=== PATIENT | female | born 1960 | race Caucasian/White ===

== ENCOUNTER 2023-08-09 16:40 | Emergency (ER) | payer BC, OTHER ==
--- OUTSIDE RECORDS SUMMARY | 2023-08-09 16:45 | XMS REPORT | Continuity of Care Document ---
:1960 Author Organization [facility] t Address [address] [place] [address] [place] [id number] Care Team Providers Name Role Phone JEY DE LA ROSA Attending Clinician Unavailable Kev Hernandez Attending Clinician Provider, [facility] Attending Clinician Unavailable Claribel Mclean Attending Clinician CLARIBEL FERRO Attending Clinician Unavailable Doctor Unassigned, [place] Attending Clinician Unavailable Elisa Virk Attending Clinician VISIT, ZOOKEEPER MPMonico Attending Clinician Unavailable Elisa Virk Admitting Clinician Payers Payer Name Policy Type Policy Number Effective Date Expiration Date [facility] [id number] 2020 00:00:00 Problems Condition Condition Condition Status Onset Resolution Last Treating Co mments Source Name Details Category Date Date Treatment Clinician Date [address]6041, 35065, Diagnosis Active 2018-09-19 Me moria SCREENING SCREENING 08-21 06:38:00 l FOR FOR 00:00: [place] DISORDERS DISORDERS 00 OF THE DI OF THE DI Active 08/21/2018 [facility] [id number] Diagnosis Active 2018-11-14 Mem oria MORBID MORBID 11-25 09:40:00 l OBESITY OBESITY 00:00: [place] Active 00 11/25/2017 [facility] Unspecifie Unspecifi Problem 2019-04-08 Memoria d chronic ed chronic 11:13:53 l gastritis gastritis Herm manuel without without bleeding bleeding 04/08/2019 [facility] Other Other Problem 2019-04-08 Memor ia diseases diseases 11:13:53 l of stomach of stomach He rmann and and duodenum duodenum 04/08/2019 [facility] Obesity, Obesity, Problem 2019-04-08 Memoria unspecifie unspecifie 11:13:53 l d d Mike 04/08/2019 [facility] Body mass Body mass Problem 2019-04-08 Memoria index index 11:13:53 l (BMI) (BMI) [place] 40.0-44.9, 40.0-44.9, adult adult 04/08/2019 [facility] Essential Essential Problem 2019-06-03 Memoria (primary) (primary) 15:13:13 l hypertensi hypertensi He rmann on on 06/03/2019 [facility] Lymphedema Lymphedem Problem 2019-06-03 Memoria , not a, not 15:13:13 l elsewhere elsewhere Herm manuel classified classified 9 [facility] Body mass Body mass Problem 2019-06-03 Memoria index index 15:13:13 l (BMI) (BMI) Mike 60.0-69.9, 60.0-69.9, adult adult 06/03/2019 [facility] Unspecifie Problem 2019-06-03 M emoria d Unspecifie 15:13:13 l osteoarthr d Samuel n itis, osteoarthr unspecifie itis, d site unspecifie d site 06/03/2019 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 History of History Problem Active 2020-11-25 Memoria bypass of of bypass 22:20:59 l stomach of stomach Barbara nn (situation (situation ) ) Active Problem 11/25/2020 [facility] Morbid Morbid Problem Active 2020-11-25 Magen darlyn obesity obesity 22:20:59 l (disorder) (disorder) Eduardo otero Active Problem 11/25/2020 [facility] ILLNESS, ILLNESS, Diagnosis Active 2018-11-14 Memoria UNSPECIFIE UNSPECIFIE 09:40:00 l D D Active Mike [facility] No known No known Disease Unive rs active active ity of problems problems [facility] History of Past Illness Condition Condition Condition Status Onset Resolution Last Treating Co mments Source Name Details Category Date Date Treatment Clinician Date Morbid Morbid Problem 2017-112019-06-03 2019-06-03 Memoria (severe) (severe) 15:13:13 15:13:13 l obesity obesity 05:12: Mike due to due to 33 excess excess calories calories 11/22/2018 06/03/2019 [facility] Gastric Gastric Problem 2017-112019-04-08 2019-04-08 Memoria ulcer, ulcer, 11-25 11:13:53 11:13:53 l unspecifie unspecifie 04:03: He rmann d as acute d as acute 58 or or chronic, chronic, without without hemorrhage hemorrhage or or perforatio perforatio n n 09/25/2018 04/08/2019 [facility] Allergies, Adverse Reactions, Alerts Allergy Allergy Status Severity Reaction(s) Onset Inactive Treating Comm ents Source Name Type Date Date Clinician NO KNOWN Drug Active Univers ALLERGIE Class [facility]y of [facility] Percodan Percodan Active Maria Alejandraori a l Mike Social History Social Habit Start Date Stop Date Quantity Comments Source Sex Assigned At Universit y of [facility] Exposure to Yes [facility] SARS-CoV-2 [facility] (event) [facility] Tobacco use and 2020-11-10 2020-11-10 Never used Universit y of exposure 00:00:00 00:00:00 [facility] Alcohol intake 2020-11-10 2020-11-10 Lifetime University of 00:00:00 00:00:00 non-drinker [facility] (finding) Branch History SDUT 2020-11-10 2020-11-10 1 University o f Alcohol Frequency 00:00:00 00:00:00 [facility] History [facility] 2020-11-10 2020-11-10 99 University o f Alcohol Std 00:00:00 00:00:00 [facility] History SDUT 2020-11-10 2020-11-10 1 University o f Alcohol Binge 00:00:00 00:00:00 [facility] Smoking Status Start Date Stop Date Source Unknown if ever smoked [facility] Social History [facility] Mike Medications Ordered Filled Start Stop Current Ordering Indication Dosage Frequency Signature Comments Components Source Medication Medication Date Date Medication? Clinician (SIG) Name Name Multiple 2020- Yes 3 Memoria Vitamins 6-30 Capsules, l with Iron 16:14: Daily, 0 Herm manuel oral tablet 00 Refill(s) omeprazole Yes 1 tablet, Me moria 20 mg oral 6-30 Daily, 0 l enteric 16:14: Refill(s) Barbara nn coated 00 tablet Acetaminoph 2017-11 No 1 tab, PO, Memoria en 300 MG / 2-21 Q4H, PRN l Codeine 22:14: Pain Score Herm manuel Phosphate 00 1-3, X 3 30 MG Oral day, # 20 Tablet tab, 0 [Tylenol Refill(s), with called to Codeine #3] pharmacy Acetaminoph 2017-11 No 2 tab, Magen darlyn en 300 MG / 2-21 Route: PO, l Codeine 21:40: Drug Form: Herm manuel Phosphate 00 TAB, 30 MG Oral Dosing Tablet Weight [Tylenol 163.636, with kg, Q4H, Codeine #3] PRN Pain Score 4-6, Start date: 11/14/18 15:40:00 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, Duration: 30 day, Stop date: 12/14/18 15:39:00 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 tramadol 2017-11 No 50 mg = 1 Magen darlyn hydrochlori 2-21 tab, PO, l de 50 MG 17:38: Q4H, PRN Barbara nn Oral Tablet 00 Pain Score 1-3, X 3 day, # 20 tab, 0 Refill(s), called to pharmacy Protonix 2017-11 No Notes: For Mem oria 2-21 IV push l 15:00: reconstitu Mike 00 te with 10 ml 0.9% sodium chloride and push over 2 minutes. (Same as: Protonix) Lovenox 2017-11 No Notes: Memoria 2-21 (Same as: l 06:00: Lovenox) Mike 00 Zofran ODT 2017-11 No Notes: Memor ia 2-21 (Same as: l 02:16: Zofran Mike 00 ODT) Ketorolac 2017-11 No 4 days Memor ia 2-21 l 02:00: MEDICATION [place] 00 WASTE Product Size: 30 mg Product Wasted: ___ mg Ofirmev 2017-11 No Notes: Max Magen darlyn 2-20 acetaminop l 22:00: hen 4000 Mike 00 mg/day (4 gm/day). (Same as: Tylenol Extra Strength) Dilaudid 2017-11 No 0.5 mg, Memori a 2-20 Route: IV, l 18:40: ONCE, Mike 00 Dosing Weight 163.636, kg, Start date: 11/13/18 12:40:00 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, Stop date: 11/13/18 12:40:00 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 tramadol 2017-11 No Notes: Not Mem oria hydrochlori 2-20 to exceed l de 50 MG 18:31: 400mg/day. Her dyer Oral Tablet 00 (Same As: Ultram) Morphine 2017-11 No Notes: Memoria 2-20 (Same l 18:31: as:MORPhin Mike 00 e Sulfate) Hydralazine 2017-11 No Notes: Magen darlyn 2-20 (Same as: l 18:31: Apresoline ) Push over 5 minutes Labetalol 2017-11 No Notes: Memori a 2-20 (Same as: l 18:31: Normodyne, Mike 00 Trandate) Push over 2 minutes Give bolus over 2-3 minutes. Promethazin 2017-11 No 12.5 mg, Me moria e 2-20 50 mL, l 18:31: Route: 00 IVPB, Drug form: SOLN, Q6H, Dosing Weight 163.636, kg, PRN Nausea & Vomiting, Start date: 11/13/18 12:31:00 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, Duration: 30 day, Stop date: 12/13/18 12:30:00 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 Ondansetron 2017-11 No Notes: Magen darlyn 2-20 (Same as: l 18:31: Zofran) MEDICATION WASTE Product Size: 4 mg Product Wasted: ___ mg Calcium 2017-11 No 1,000 mL, Memor ia Chloride 2-20 Rate: 125 l 0.0014 18:31: ml/hr, [place] MEQ/ML / 00 Infuse Potassium over: 8 Chloride hr, Route: 0.004 IV, Dosing MEQ/ML / Weight Sodium 163.636 Chloride kg, Total 0.103 Volume: MEQ/ML / 1,000, Sodium Start Lactate date: 0.028 11/13/18 MEQ/ML 12:31:00 Injectable 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, Solution Duration: 30 day, Stop date: 12/13/18 12:30:00 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, 2.78, m2 glycopyrrol 2017-11 No Route: IV, Memoria ate (ANES) 2-20 Drug form: l 18:11: INJ, ONCE, Stop date: 11/13/18 12:11:00 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 metoclopram 2017-11 No Route: IV, Memoria hermilo (ANES) 2-20 Drug form: l 18:11: INJ, ONCE, Stop date: 11/13/18 12:11:00 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 neostigmine 2017-11 No Route: IV, Memoria (ANES) 2-20 Drug form: l 18:11: INJ, ONCE, Stop date: 11/13/18 12:11:00 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 lidocaine 2017-11 No Route: IV, Me moria (ANES) 2-20 Drug form: l 16:36: INJ, ONCE, Stop date: 11/13/18 10:36:00 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 fentaNYL 2017-11 No Route: IV, Mem oria (ANES) 2-20 Drug form: l 16:36: INJ, ONCE, Stop date: 11/13/18 10:36:00 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 succinylcho 2017-11 No Route: IV, Memoria line (ANES) 2-20 Drug form: l 16:36: INJ, ONCE, Stop date: 11/13/18 10:36:00 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 propofol 2017-11 No Route: IV, Mem oria (ANES) 2-20 Drug form: l 16:36: INJ, ONCE, Stop date: 11/13/18 10:36:00 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 rocuronium 2017-11 No Route: IV, M emoria (ANES) 2-20 Drug form: l 16:31: INJ, ONCE, Stop date: 11/13/18 10:31:00 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 ondansetron 2017-11 No Route: IV, Memoria (ANES) 2-20 Drug form: l 16:26: INJ, ONCE, Stop date: 11/13/18 10:26:00 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 ePHEDrine 2017-11 No Route: IV, Me moria (ANES) 2-20 Drug form: l 16:26: INJ, ONCE, Stop date: 11/13/18 10:26:00 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 ceFAZolin 2017-11 No Route: IV, Me moria (ANES) 2-20 Drug form: l 16:21: INJ, ONCE, Stop date: 11/13/18 10:21:00 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 Dexamethaso 2017-11 No Notes: Magen darlyn ne 2-20 Concentrat l 16:17: ion: [place] 4mg/ml Ondansetron 2017-11 No Notes: Magen darlyn 2-20 (Same as: l 16:17: Zofran) MEDICATION WASTE Product Size: 4 mg Product Wasted: ___ mg Promethazin 2017-11 No Notes: Do M emoria e 2-20 not give l 16:17: IV push. (Same as: Phenergan) Naloxone 2017-11 No Notes: Memoria 2-20 Same as l 16:17: Narcan Diphenhydra 2017-11 No Notes: Magen darlyn mine 2-20 (Same as: l 16:17: Benadryl) Meperidine 2017-11 No Notes: Memor ia 2-20 (Same as: l 16:17: Demerol) "Use Precaution in Elderly, Seizure disorders, and Renal impairment " Morphine 2017-11 No Notes: Memoria 2-20 (Same l 16:17: as:MORPhin e Sulfate) Flumazenil 2017-11 No Notes: Memor ia 2-20 (Same as: l 16:17: Romazicon) dexamethaso 2017-11 No Route: IV, Memoria ne (ANES) 2-20 Drug form: l 16:16: INJ, ONCE, Mike 00 Stop date: 11/13/18 10:16:00 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 acetaminoph 2017-11 No Route: IV, Memoria en (ANES) 2-20 Drug form: l 10 mg 15:57: INJ, Start Samuel n date: 11/13/18 9:57:00 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, Stop date: 11/13/18 10:57:00 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 Lactated 2017-11 No Route: IV, Mem oria Ringers 2-20 Total l Injection 15:32: Volume: Barbara nn IV (ANES) 00 1,000, 1000 mL Start date: 11/13/18 9:32:00 [employer]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, Stop date: 11/13/18 10:32:00 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 ceFAZolin + 2017-11 No Notes: Magen darlyn sterile 2-20 (Same As: l water 30 mL 06:00: Helen Garza Kefzol) MEDICATION WASTE Product Size: 1000 mg Product Wasted: ___ mg Sodium 2017-11 No 1,000 mL, Memori a Chloride 2-19 Rate: l 0.9% IV 14:00: bolus, [place] 1,000 mL 00 Route: IV, Dosing Weight 172.273 kg, Total Volume: 1,000, Start date: 11/12/18 8:00:00 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, Stop date: 11/13/18 14:00:00 [employer]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, 2.86, m2 Tylenol 2017-11 No PO, 0 Memoria 2-05 Refill(s) l 22:18: Mike 00 Centrum 2017-11 No 1 tab, Memoria 0-26 Daily, 0 l 12:43: Refill(s) Mike 00 Glucosamine 2017-11 No 1,500 mg Me moria Chondroitin 0-26 =, PO, l 12:43: Daily, 0 [place] 00 Refill(s) Furosemide 2017-11 No 20 mg, Memor ia 0-26 Daily, 0 l 12:43: Refill(s) [place] 00 Bystolic 2017-11 No 10 mg, PO, Mem oria 0-26 Daily, 0 l 12:43: Refill(s) [place] 00 Aleve 2017-11 No 220 mg, Memoria 0-26 PO, 0 l 12:43: Refill(s) Unknown 2017-11 No PO, Daily, Magen darlyn Home 0-26 Refill(s) l Medication 12:43: 0 Vital Signs Vital Name Observation Time Observation Value Comments Source Systolic blood 2020-11-10 21:07:00 135 mm[Hg] Univer sity of pressure [facility] Diastolic blood 2020-11-10 21:07:00 82 mm[Hg] [facility] Heart rate 2020-11-10 21:07:00 84 /min [facility] Body temperature 2020-11-10 21:07:00 37.78 Susie [facility] Respiratory rate 2020-11-10 21:07:00 18 /min [facility] Body height 2020-11-10 21:07:00 162.6 cm [facility] Body weight 2020-11-10 21:07:00 135.807 kg [facility] BMI 2020-11-10 21:07:00 51.39 kg/m2 [facility] Oxygen saturation in 2020-11-10 21:07:00 98 /min [facility] Arterial blood by [facility] Pulse oximetry Branch Height 2020-05-24 16:32:00 157.48 cm [facility] [place] Weight 2020-05-24 16:32:00 [facility] Mike BMI Calculated 2020-05-24 16:32:00 Memori al Mike Systolic (mm Hg) 2019-11-23 19:19:00 Magen rial [place] Diastolic (mm Hg) 2019-11-23 19:19:00 Mem orial [place] Height 2019-11-23 19:19:00 160.02 cm [facility] [place] Weight 2019-11-23 19:19:00 [facility] [place] BMI Calculated 2019-11-23 19:19:00 Memori al [place] Systolic (mm Hg) 2018-11-14 22:36:00 Magen rial [place] Diastolic (mm Hg) 2018-11-14 22:36:00 Mem orial [place] Temperature Oral (F) 2018-11-14 22:36:00 97.8 F [facility] Mike Respitory Rate 2018-11-14 22:36:00 Memori al [place] Heart Rate 2018-11-14 22:36:00 [facility] Mike Systolic (mm Hg) 2018-11-14 18:45:00 Magen rial Mike Diastolic (mm Hg) 2018-11-14 18:45:00 Mem orial [place] Temperature Oral (F) 2018-11-14 18:45:00 98.0 F [facility] Mike Respitory Rate 2018-11-14 18:45:00 Memori al Mike Heart Rate 2018-11-14 18:45:00 [facility] [place] Heart Rate 2018-11-14 13:40:00 [facility] Mike Temperature Oral (F) 2018-11-14 13:40:00 99.0 F [facility] [place] Respitory Rate 2018-11-14 13:40:00 Memori al [place] Systolic (mm Hg) 2018-11-14 13:40:00 Magen vivas [place] Diastolic (mm Hg) 2018-11-14 13:40:00 Mem orial [place] BMI Calculated 2018-11-13 14:42:00 Memkiarra al Mike Weight 2018-11-13 14:42:00 [facility] [place] Height 2018-10-29 22:13:00 162.56 cm [facility] [place] Weight 2018-09-19 12:38:00 [facility] [place] Height 2018-09-19 12:38:00 160.02 cm [facility] [place] BMI Calculated 2018-09-19 12:38:00 Balbina al Mike Procedures Procedure Date / Time Performing Clinician Source Performed POCT FLU A AND B 2020-11-10 21:26:00 Nishant Andujar [facility] Laparoscopic lysis of 2018-11-13 06:00:00 Balbina olguin [place] adhesions Shannon-en-y gastric 2018-11-13 06:00:00 [facility] ermann bypass Encounters Start End Encounter Admission Attending Care Care Encounter Source Date/Time Date/Time Type Type Clinicians Facility Department ID 2021-02-07 2021-02-07 Outpatient Alison DE LA ROSA [facility] [id number] Univers 16:20:00 16:20:00 [facility] 2021-01-17 2021-01-17 Outpatient Alison DE LA ROSA [facility] [id number] Univers 14:50:00 14:50:00 [facility] 2020-11-23 2020-11-23 Ambulatory nullFlavo [id number] Memoria 15:30:00 15:30:00 Pre-Reg r Physicians 05 l Bariatric Samuel n Surgery 2020-11-23 2020-11-23 [place] [id number] Memoria 15:00:00 15:00:00 Pre-Reg r Physicians 06 l Bariatric Samuel n Surgery 2020-11-23 2020-11-23 Outpatient MHIE CRYSTALIE [id number] Memoria 09:30:00 09:30:00 05 l [place] 2020-11-23 2020-11-23 Outpatient FRANCE ROJASIE [id number] Memoria 09:30:00 09:30:00 06 l Mike 2020-11-23 2020-11-23 Outpatient DOMINIC Hernandez [facility] [id number] 09:30:00 09:30:00 Kev 05 2020-11-23 2020-11-23 Outpatient David [facility] [id number] 09:00:00 09:00:00 Kev 06 2020-11-10 2020-11-10 Urgent Provider, [facility] [id number] Univers 14:58:37 15:18:37 Care Claribel Ferro [facility] [id number] ity of [place] [id number] John as Professio [phone] [place] [address] [address] 2020-11-10 2020-11-10 Outpatient R PILLO [facility] [id number] Univers 15:00:00 15:00:00 CLARIBEL webber [facility] 2020-11-10 2020-11-10 Letter Doctor GENTRY [id number] [facility] 00:00:00 00:00:00 (Out) Unassigned, NEERAJ [id number] [facility] [id number] John as [id number] [address] 2020-05-24 2020-05-25 [place] [id number] Memoria 16:00:00 04:59:59 r Physicians 04 l Bariatric Samuel n Surgery 2020-05-24 2020-05-24 Outpatient Sully [facility] [id number] 11:00:00 23:59:59 Elisa Palmaiam 2020-05-24 2020-05-24 [place] [id number] Memoria 18:00:00 18:00:00 Pre-Reg r Physicians 01 l Bariatric Samuel n Surgery 2020-05-24 2020-05-24 [place] [id number] Memoria 18:00:00 18:00:00 Pre-Reg r Physicians 03 l Bariatric Samuel n Surgery 2020-05-24 2020-05-24 Outpatient MHIE MHIE [id number] Memoria 13:00:00 13:00:00 01 nataliya Mckeon 2020-05-24 2020-05-24 Outpatient MHIE MHIE [id number] Memoria 13:00:00 13:00:00 03 l [place] 2020-05-24 2020-05-24 Outpatient Gloriase, MG [facility] [id number] 13:00:00 13:00:00 Tanyaradzwa Elena 2020-05-24 2020-05-24 Outpatient Sully, [facility] [id number] 13:00:00 13:00:00 Tanyaradzwa 03 Elena 2020-05-24 2020-05-24 Outpatient MHIE IE [id number] Memoria 11:00:00 11:00:00 04 l [place] 2019-11-27 2019-11-27 Ambulatory nullFlavo [id number] Memoria 20:30:00 20:30:00 Pre-Reg r Physicians 02 l Bariatric Samuel n Surgery 2019-11-27 2019-11-27 Outpatient MHIE CRYSTALIE [id number] Memoria 14:30:00 14:30:00 02 l Mike 2019-11-27 2019-11-27 Outpatient VISIT, [facility] [id number] 14:30:00 14:30:00 ZOOKEEPER 02 MPB 2019-11-23 2019-11-24 Outpatient nullFlavo [id number] Memoria 19:00:00 05:59:59 r Physicians 00 l Bariatric Samuel n Surgery 2019-11-23 2019-11-23 Outpatient Sully, [facility] [id number] 13:00:00 23:59:59 Tanyaradzwa Elena 2019-11-23 2019-11-23 Outpatient MHIE IE [id number] Memoria 13:00:00 13:00:00 00 l [place] 2018-11-13 2018-11-15 Inpatient nullFlavo [facility] [id number] Memoria 13:55:00 00:50:00 r Mike 01 [facility] 2018-11-13 2018-11-14 Outpatient Sully, [facility] [id number] 07:55:00 18:50:00 Tanyaradstaciewa Elena 2018-09-19 2018-09-19 Bedded nullFlavo [facility] [id number] Memoria 11:26:00 13:50:00 Outpatient r Mike 00 [facility] 2018-09-19 2018-09-19 Outpatient Sully [facility] [id number] 06:26:00 08:50:00 Tuanarnaud 00 Elena Results Test Description Test Time Test Comments Results Result Comments Source POCT FLU A AND B (MOLECULAR) 2020-11-10 21:38:00 Test Item Value Reference Range Interpretation Comme nts POCT INFLUENZA A (test code = negative Negative - Negative 3840) POCT INFLUENZA B (test code = negative Negative - Negative 3841) EWA (test code = EWA) accurate development and interpretation of all internal controls Lab Interpretation (test code = Normal 40274-1) [facility]2018[facility] 10:02:00 Test Item Value Reference Range Interpretation Comments Sodium Lvl (test code = Sodium Lvl) 142 135-145 [facility]2018-12-21 10:02:00 Test Item Value Reference Range Interpretation Comments Potassium Lvl (test code = Potassium 4.6 3.5-5.1 Lvl) [facility]2018-12-21 10:02:00 Test Item Value Reference Range Interpretation Comments Chloride Lvl (test code = Chloride Lvl) 105 95-109 [facility]2018-12-21 10:02:00 Test Item Value Reference Range Interpretation Comments Glucose Lvl (test code = Glucose Lvl) 83 70-99 [facility]2018-12-21 10:02:00 Test Item Value Reference Range Interpretation Comments CO2 (test code = CO2) 28 24-32 [facility]2018-12-21 10:02:00 Test Item Value Reference Range Interpretation Comments BUN (test code = BUN) 10 7-22 [facility]2018-12-21 10:02:00 Test Item Value Reference Range Interpretation Comments eGFR (test code = eGFR) 99 [facility]2018-12-21 10:02:00 Test Item Value Reference Range Interpretation Comments Creatinine Lvl (test code = Creatinine 0.64 0.50-1.40 Lvl) [facility]2018-12-21 10:02:00 Test Item Value Reference Range Interpretation Comments AGAP (test code = AGAP) 13.6 10.0-20.0 [id number] 10:02:00 Test Item Value Reference Range Interpretation Comments Lymphocytes # (test code = Lymphocytes 0.7 1.0-5.5 #) [id number] 10:02:00 Test Item Value Reference Range Interpretation Comments Monocytes # (test code 0.6 See_Comment [Aut omated message] The = Monocytes #) system which generated this result tra nsmitted reference range : <=0.8. The reference r elsy was not used to int erpret this result as normal/abnormal . [id number] 10:02:00 Test Item Value Reference Range Interpretation Comments Lymphocytes (test code = Lymphocytes) 9.9 20.0-40.0 [id number] 10:02:00 Test Item Value Reference Range Interpretation Comments Monocytes (test code = Monocytes) 8.3 2.0-12.0 [id number] 10:02:00 Test Item Value Reference Range Interpretation Comments Basophils (test code = 0.2 See_Comment [Aut omated message] The Basophils) system which ge nerated this result tra nsmitted reference range : <=1.0. The reference r elsy was not used to int erpret this result as normal/abnormal . [id number] 10:02:00 Test Item Value Reference Range Interpretation Comments Eosinophils (test code = 0.1 See_Comment [A utomated message] The Eosinophils) system which ge nerated this result tra nsmitted reference range : <=4.0. The reference r elsy was not used to int erpret this result as normal/abnormal . [id number] 10:02:00 Test Item Value Reference Range Interpretation Comments Neutrophils # (test code = Neutrophils 5.8 1.5-8.1 #) [id number] 10:02:00 Test Item Value Reference Range Interpretation Comments Segs (test code = Segs) 81.5 45.0-75.0 [id number] 10:02:00 Test Item Value Reference Range Interpretation Comments Hct (test code = Hct) 35.4 36.0-48.0 [facility]woodWdnlwgnSXBRTQANMQ0438-83-70 10:02:00 Test Item Value Reference Range Interpretation Comments MCH (test code = MCH) 29.4 pg 27.0-31.0 [facility]TowtdhcUKQHYHWZGT0798-82-18 10:02:00 Test Item Value Reference Range Interpretation Comments MCHC (test code = MCHC) 32.7 32.0-36.0 [facility]UV[facility] 10:02:00 Test Item Value Reference Range Interpretation Comments Hgb (test code = Hgb) 11.6 12.0-16.0 [facility] HospitalVewgnkrTLCZFOFOIP1096-37-04 10:02:00 Test Item Value Reference Range Interpretation Comments MCV (test code = MCV) 89.9 80.0-98.0 [facility] HospitalZxlkzlpLZCOJZXRWV8595-49-68 10:02:00 Test Item Value Reference Range Interpretation Comments RBC (test code = RBC) 3.94 4.20-5.40 [facility] HospitalTwynpkoSWZFXVTPYS7140-68-37 10:02:00 Test Item Value Reference Range Interpretation Comments MPV (test code = MPV) 8.8 7.4-10.4 [facility] HospitalUtzvmrfUUNDWDSYFY0119-06-77 10:02:00 Test Item Value Reference Range Interpretation Comments Platelet (test code = Platelet) 170 133-450 [facility] HospitalIhhtzuiWVKLWARDID9090-45-72 10:02:00 Test Item Value Reference Range Interpretation Comments RDW (test code = RDW) 13.4 11.5-14.5 [facility]ptYEHAQCZRSA7459-02-56 10:02:00 Test Item Value Reference Range Interpretation Comments WBC (test code = WBC) 7.1 3.7-10.4 [facility] HospitalAdsWizz [id number] 10:02:00 Test Item Value Reference Range Interpretation Comments Calcium Lvl (test code = Calcium Lvl) 8.8 8.5-10.5 [facility] [id number] 15:05:00 Test Item Value Reference Range Interpretation Comments Antibody Scrn (test Negative (11/13/18 code = Antibody Scrn) 9:05 AM) [facility] VRVANFS4217-26-07 15:05:00 Test Item Value Reference Range Interpretation Comments ABO/Rh (test code = ABO/Rh) A POS [facility] [employer] [id number] 22:38:00 Test Item Value Reference Range Interpretation Comments VITAMIN B1 (THIAMINE) WHOLE BLOOD (test 157.9 66.5-200.0 code = VITAMIN B1 (THIAMINE) WHOLE BLOOD) [facility]2018-12-05 22:38:00 Test Item Value Reference Range Interpretation Comments B/C Ratio (test code = B/C Ratio) 19 1 6-25 [place] 224348-12-05 22:38:00 Test Item Value Reference Range Interpretation Comments A/G Ratio (test code = A/G Ratio) 0.8 1 0.7-1.6 [place] 224348-12-05 22:38:00 Test Item Value Reference Range Interpretation Comments Globulin (test code = Globulin) 4.4 2.7-4.2 [facility]2018-12-05 22:38:00 Test Item Value Reference Range Interpretation Comments AGAP (test code = AGAP) 12.1 10.0-20.0 [facility]2018-12-05 22:38:00 Test Item Value Reference Range Interpretation Comments AST (test code = AST) 18 See_Comment [Auto mated message] The system which ge nerated this result transmit annalee reference range : <=37. The reference range was not used to interpr et this result as eduardo l/abnormal. [facility]2018-12-05 22:38:00 Test Item Value Reference Range Interpretation Comments eGFR (test code = eGFR) 78 [facility]2018-12-05 22:38:00 Test Item Value Reference Range Interpretation Comments Creatinine Lvl (test code = Creatinine 0.83 0.50-1.40 Lvl) [facility]2018-12-05 22:38:00 Test Item Value Reference Range Interpretation Comments ALT (test code = ALT) 30 See_Comment [Auto mated message] The system which ge nerated this result transmit annalee reference range : <=65. The reference range was not used to interpr et this result as eduardo l/abnormal. [facility]2018-12-05 22:38:00 Test Item Value Reference Range Interpretation Comments Bili Total (test code = Bili Total) 0.8 0.2-1.3 [place] 224348-12-05 22:38:00 Test Item Value Reference Range Interpretation Comments Sodium Lvl (test code = Sodium Lvl) 146 135-145 [place] 224348-12-05 22:38:00 Test Item Value Reference Range Interpretation Comments Chloride Lvl (test code = Chloride Lvl) 108 95-109 [facility]2018-12-05 22:38:00 Test Item Value Reference Range Interpretation Comments Potassium Lvl (test code = Potassium 4.1 3.5-5.1 Lvl) [facility]2018-12-05 22:38:00 Test Item Value Reference Range Interpretation Comments Total Protein (test code = Total 7.9 6.4-8.4 Protein) [facility]2018-12-05 22:38:00 Test Item Value Reference Range Interpretation Comments Albumin Lvl (test code = Albumin Lvl) 3.5 3.5-5.0 [facility]2018-12-05 22:38:00 Test Item Value Reference Range Interpretation Comments CO2 (test code = CO2) 30 24-32 [facility]2018-12-05 22:38:00 Test Item Value Reference Range Interpretation Comments BUN (test code = BUN) 16 7-22 [facility]2018-12-05 22:38:00 Test Item Value Reference Range Interpretation Comments Alk Phos (test code = Alk Phos) 49 39-136 [facility]2018-12-05 22:38:00 Test Item Value Reference Range Interpretation Comments Glucose Lvl (test code = Glucose Lvl) 103 70-99 [facility]2018-12-05 22:38:00 Test Item Value Reference Range Interpretation Comments Calcium Lvl (test code = Calcium Lvl) 9.0 8.5-10.5 [facility]woodOpnalsrWFKYQCZUFA5872-46-85 22:38:00 Test Item Value Reference Range Interpretation Comments PT (test code = PT) 12.4 s 12.0-14.7 [place] 243848-12-05 22:38:00 Test Item Value Reference Range Interpretation Comments PTT (test code = PTT) 28.1 s 22.9-35.8 [place] 243848-12-05 22:38:00 Test Item Value Reference Range Interpretation Comments INR (test code = INR) 0.94 1 0.85-1.17 [place] 243848-12-05 22:38:00 Test Item Value Reference Range Interpretation Comments Hct (test code = Hct) 40.1 36.0-48.0 [facility]woodBidwkleZEVJBPQXAS6418-45-16 22:38:00 Test Item Value Reference Range Interpretation Comments MCV (test code = MCV) 89.7 80.0-98.0 [facility]woodQblybsbWGSPGTYAET0004-16-63 22:38:00 Test Item Value Reference Range Interpretation Comments Hgb (test code = Hgb) 13.2 12.0-16.0 [facility] KingwoodMyciumyMYLIDWHYIM9350-11-60 22:38:00 Test Item Value Reference Range Interpretation Comments RBC (test code = RBC) 4.47 4.20-5.40 [facility] KingwoodIelcaydZYJMIIPSTR3800-94-11 22:38:00 Test Item Value Reference Range Interpretation Comments WBC (test code = WBC) 7.0 3.7-10.4 [facility]woodKqwclrwPQUEMIXTEC6893-52-75 22:38:00 Test Item Value Reference Range Interpretation Comments RDW (test code = RDW) 13.7 11.5-14.5 [facility]woodOfbdoqtNBFSCOPAWL1675-02-28 22:38:00 Test Item Value Reference Range Interpretation Comments Platelet (test code = Platelet) 183 133-450 [facility] KingwoodXsrxhklSKDYBNDKTR1021-85-87 22:38:00 Test Item Value Reference Range Interpretation Comments MPV (test code = MPV) 8.8 7.4-10.4 [facility]woodJsqmgycRMEFXKTYWH8957-33-43 22:38:00 Test Item Value Reference Range Interpretation Comments MCHC (test code = MCHC) 32.9 32.0-36.0 [facility] KingwoodZrtfyybOSYPRIQIVT5829-91-81 22:38:00 Test Item Value Reference Range Interpretation Comments MCH (test code = MCH) 29.5 pg 27.0-31.0 [facility] KingwoodCgqqcsgTFBVCCCTNC3476-71-52 22:38:00 Test Item Value Reference Range Interpretation Comments Basophils (test code = 0.9 See_Comment [Aut omated message] The Basophils) system which ge nerated this result tra nsmitted reference range : <=1.0. The reference r elsy was not used to int erpret this result as normal/abnormal . [facility]woodSjjhxeoLCEGSYVGNY0640-46-52 22:38:00 Test Item Value Reference Range Interpretation Comments Neutrophils # (test code = Neutrophils 4.5 1.5-8.1 #) [facility] KingwoodIekteziBRHGMTLJFM9217-37-49 22:38:00 Test Item Value Reference Range Interpretation Comments Segs (test code = Segs) 65.1 45.0-75.0 [facility] KingwoodAhmmsqoWCCJMAJVPX9467-69-27 22:38:00 Test Item Value Reference Range Interpretation Comments Eosinophils # (test code 0.2 See_Comment [A utomated message] The = Eosinophils #) system [facility] h generated this result tra nsmitted reference range : <=0.5. The reference r elsy was not used to int erpret this result as normal/abnormal . [facility]woodXnlnisvDNKZCJLCXC2912-92-58 22:38:00 Test Item Value Reference Range Interpretation Comments Basophils # (test code 0.1 See_Comment [Aut omated message] The = Basophils #) system which generated this result tra nsmitted reference range : <=0.2. The reference r elsy was not used to int erpret this result as normal/abnormal . [facility]woodNiwvfycDVQJJZKCCE3905-67-65 22:38:00 Test Item Value Reference Range Interpretation Comments Lymphocytes # (test code = Lymphocytes 1.5 1.0-5.5 #) [facility]woodKjmvjhcQITQIEBDIR6755-17-56 22:38:00 Test Item Value Reference Range Interpretation Comments Monocytes # (test code 0.6 See_Comment [Aut omated message] The = Monocytes #) system which generated this result tra nsmitted reference range : <=0.8. The reference r elsy was not used to int erpret this result as normal/abnormal . [facility]woodGbhzomuKISFNQSDCT6864-63-23 22:38:00 Test Item Value Reference Range Interpretation Comments Eosinophils (test code = 3.4 See_Comment [A utomated message] The Eosinophils) system which ge nerated this result tra nsmitted reference range : <=4.0. The reference r elsy was not used to int erpret this result as normal/abnormal . [facility]woodTsjqwdmVIHEWVYACW6226-46-11 22:38:00 Test Item Value Reference Range Interpretation Comments Lymphocytes (test code = Lymphocytes) 21.9 20.0-40.0 [facility] KingwoodAjkgsxuDUBBIOOABV9398-61-95 22:38:00 Test Item Value Reference Range Interpretation Comments Monocytes (test code = Monocytes) 8.7 2.0-12.0 [facility]2018-12-05 22:10:00 Test Item Value Reference Range Interpretation Comments UA Leuk Est (test Negative (10/29/18 4:10 code = UA Leuk Est) PM) [facility] [id number] 22:10:00 Test Item Value Reference Range Interpretation Comments UA WBC (test code = 1 See_Comment [Automa annalee message] The UA WBC) system which ge nerated this result transmit annalee reference range : <=5. The reference range was not used to interpr et this result as eduardo l/abnormal. [facility] AND [id number] 22:10:00 Test Item Value Reference Range Interpretation Comments UA Sq Epi (test code = UA Sq Occasional /LPF Epi) [facility] [id number] 22:10:00 Test Item Value Reference Range Interpretation Comments UA RBC (test code = no gt See_Comment [Automa annalee message] The UA RBC) system which ge nerated this result transmit annalee reference range : <=2. The reference range was not used to interpr et this result as eduardo l/abnormal. [facility] [id number] 22:10:00 Test Item Value Reference Range Interpretation Comments UA Bacteria (test code = UA Occasional /HPF Bacteria) [facility] [id number] 22:10:00 Test Item Value Reference Range Interpretation Comments UA Mucus (test code = UA Mucus) Few /LPF [facility] [id number] 22:10:00 Test Item Value Reference Range Interpretation Comments UA Turbidity (test code = Clear (10/29/18 4:10 UA Turbidity) PM) [facility] [id number] 22:10:00 Test Item Value Reference Range Interpretation Comments UA Blood (test code = Negative (10/29/18 4:10 UA Blood) PM) [facility] [id number] 22:10:00 Test Item Value Reference Range Interpretation Comments UA Urobilinogen (test code = UA 2.0 0.1-1.0 Urobilinogen) [facility] [id number] 22:10:00 Test Item Value Reference Range Interpretation Comments UA Glucose (test code Negative *NA*(10/29/18 = UA Glucose) 4:10 PM) [facility] [id number] 22:10:00 Test Item Value Reference Range Interpretation Comments UA Bili (test code = Negative *NA*(10/29/18 UA Bili) 4:10 PM) [facility] [id number] 22:10:00 Test Item Value Reference Range Interpretation Comments UA Ketones (test code = UA Ketones) Negative [facility] [id number] 22:10:00 Test Item Value Reference Range Interpretation Comments UA pH (test code = UA pH) 6.0 1 5.0-8.0 [facility] [id number] 22:10:00 Test Item Value Reference Range Interpretation Comments UA Protein (test code Negative (10/29/18 4:10 = UA Protein) PM) [facility] [id number] 22:10:00 Test Item Value Reference Range Interpretation Comments UA Nitrite (test code Negative (10/29/18 4:10 = UA Nitrite) PM) [facility] [id number] 22:10:00 Test Item Value Reference Range Interpretation Comments UA Spec Grav (test code = UA Spec 1.025 1 Grav) [facility] [id number] 22:10:00 Test Item Value Reference Range Interpretation Comments UA Color (test code = Yellow *NA*(10/29/18 UA Color) 4:10 PM) [facility]woodBpnxmlaNVXBGZPGPM1891-83-77 12:27:00 Test Item Value Reference Range Interpretation Comments POC Hematocrit (test code = POC 38.0 36.0-48.0 Hematocrit) [facility]woodUprhujzICPDRRIVNA4828-12-31 12:27:00 Test Item Value Reference Range Interpretation Comments POC Hemoglobin (test code = POC 12.9 12.0-16.0 Hemoglobin) [facility]woodYhtzjglKAYGYGHRFO9393-47-01 12:27:00 Test Item Value Reference Range Interpretation Comments POC Glucose (test code = POC Glucose) 105 70-99 [facility]woodOvucbnaORAVKLWXWC0488-29-36 12:27:00 Test Item Value Reference Range Interpretation Comments POC Potassium (test code = POC 3.9 3.5-5.1 Potassium) [facility] KingwoodNgrjvjnQIXUBWFTSD4807-84-89 12:27:00 Test Item Value Reference Range Interpretation Comments POC Sodium (test code = POC Sodium) 143 135-145 [facility] Notes Date/Time Note Provider Source 2018-10-29 16:14:00-00:00 EXAM: [facility] Chest x-ray, 2 view(s). CLINICAL HX: Coughing - Coughing. Age: 58 years. Gender: Female. COMPARISON: Chest x-ray: None. FINDINGS: Support apparatus: None. Cardiac silhouette: Unremarkable. Mediastinum: -- Cynthia: Unremarkable. -- Other: None. Lungs: -- Consolidation: Negative. -- Pleural effusion: Exclude d right lateral costophrenic angle tip, but no large pleural effusion. -- Pneumothorax: Negative. -- Other: Negative. Bones: Mild dextro convex curvature of the thora cic spine. Other: None. IMPRESSION: 1. No acute cardiopulmonary process.
[2023-08-09 17:29] LABS: Absolute Lymphocytes (CBC) 0.8 K/uL (0.7-4.9); Hematocrit 40.3 % (36.0-45.0); Lymphocytes % 11.2 % (15.3-44.8); MPV 8.3 fL (7.6-11.3); Platelets 181 thou/uL (152-406); RBC Red Blood Cell Count 4.52 M/uL (3.86-4.86)
[2023-08-09 17:35] LABS: Specific Gravity 1.028 (1.005-1.030); Urine Bacteria <20 /HPF (<20); Urine Bilirubin NEGATIVE (Negative); Urine Blood Negative (Negative); Urine Clarity Extremely Turbid (Clear); Urine Color Yellow (Yellow); Urine Glucose NEGATIVE (Negative); Urine Mucus Slight /HPF (None Seen); Urine Protein 1+ (Negative); Urine Urobilinogen 1+ (Normal)
[2023-08-09] MEDS ORDERED: ONDANSETRON 4 MG/2 ML VIAL ONE (17:37)
[2023-08-09] MEDS ORDERED: FAMOTIDINE 20 MG/2 ML VIAL IV ONE (17:37)
[2023-08-09 17:49] LABS: Albumin 3.7 g/dL (3.4-5.0); Bilirubin Total 0.6 mg/dL (0.2-1.0); Potassium 3.8 mEq/L (3.5-5.1); Protein, Total 7.7 g/dL (6.4-8.2)
--- NOTE | 2023-08-09 18:51 | RAD REPORT ---
EXAM DESCRIPTION: CT - Abdomen Pelvis W Contrast - 08/09/2023 6:29 pm CLINICAL HISTORY: Abdominal pain/epigastric pain COMPARISON: none. TECHNIQUE: Computed axial tomography of the abdomen pelvis was obtained. 100 cc Isovue-300 was admin istered intravenously. Oral contrast was not requested which limits evaluation of bowel and appendix All CT scans are performed using dose optimization technique as appropriate and may include automated exposure control or mA/KV adjustment according to patient size. FINDINGS: Cholecystectomy. Mild prominence of the extrahepatic bile ducts. Postsurgical changes invo lve stomach The liver, spleen, pancreas, adrenal and left kidney appear unremarkable. A 2.9 centimeter right adrenal mass. Hounsfield unit 29. It contains a small calcification There is no evidence of diverticulitis. Small umbilical hernia IMPRESSION: 2.9 centimeter right adrenal mass nonspecific CT characteristics. Adenoma is considered most likely. It is recommended that this be confirmed with a nonemergent MRI Mild prominence of the extrahepatic bile ducts usually is a normal finding in a patient status post c holecystectomy. Pathology such as stricture or stone can also result in this appearance should be cor related clinically and with appropriate lab values
[2023-08-09] MEDS ORDERED: MORPHINE 4 MG/ML SYR ONE (19:30)
--- NOTE | 2023-08-09 19:32 | EDPHYS ---
Physician Documentation [facility] Name: Karin Marinelli Age: 62 yrs Sex: Female : 1960 Arrival Date: 08/09/2023 Time: 16:40 Bed 4 Private MD: ED Physician Alistair Jay HPI: 08/09 17:20 This 62 yrs old Female presents to ER via Ambulatory with complaints of Nausea, cp Abdominal Pain. 17:20 The patient presents to the emergency department with nausea, that is moderate, cp abdominal pain, of the epigastric area, described as waxing and waning, and radiates to the back. Onset: The symptoms/episode began/occurred this morning. Possible causes: unknown. Associated signs and symptoms: Pertinent negatives: constipation, diarrhea, fever, vomiting. Severity of symptoms: in the emergency department the symptoms are unchanged despite home interventions. yes prior to having gallbladder surgically removed. Historical: - Allergies: 17:11 Percodan; ph - Home Meds: 17:11 Contrave oral [Active]; ph - PMHx: 17:11 None; ph - PSHx: 17:11 Cholecystectomy; ph - Immunization history:: Adult Immunizations unknown. - Social history:: Smoking status: Patient denies any tobacco usage or history of. ROS: 17:25 Constitutional: Negative for body aches, chills, fever, poor PO intake. cp 17:25 Eyes: Negative for injury, pain, redness, and discharge. cp 17:25 ENT: Negative for drainage from ear(s), ear pain, sore throat, difficulty swallowing, difficulty handling secretions. 17:25 Cardiovascular: Negative for chest pain. 17:25 Respiratory: Negative for cough, shortness of breath, wheezing. 17:25 Abdomen/GI: Positive for abdominal pain, nausea, Negative for vomiting, diarrhea, constipation, dysphagia, hematemesis. 17:25 Back: Positive for radiated pain, Negative for injury or acute deformity, decreased range of motion. 17:25 : Negative for urinary symptoms, hematuria. 17:25 Neuro: Negative for altered mental status, dizziness, headache, syncope, weakness. 17:25 All other systems are negative. Exam: 17:30 Constitutional: The patient appears in no acute distress, alert, awake, cp non-diaphoretic, non-toxic, well developed, well nourished, obese. 17:30 Head/Face: Normocephalic, atraumatic. cp 17:30 Eyes: Periorbital structures: appear normal, Conjunctiva: normal, no exudate, no injection, Sclera: no appreciated abnormality, Lids and lashes: appear normal, bilaterally. 17:30 ENT: External ear(s): are unremarkable, Nose: is normal, Mouth: Lips: moist, Oral mucosa: pink and intact, moist, Posterior pharynx: is normal, airway is patent, no erythema, no exudate. 17:30 Chest/axilla: Inspection: normal. 17:30 Cardiovascular: Rate: bradycardic, Rhythm: regular, Edema: ankle edema, that is moderate, JVD: is not appreciated. 17:30 Respiratory: the patient does not display signs of respiratory distress, Respirations: normal, no use of accessory muscles, no retractions, labored breathing, is not present, Breath sounds: are clear throughout, no decreased breath sounds, no stridor, no wheezing. 17:30 Abdomen/GI: Inspection: abdomen appears normal, Bowel sounds: active, all quadrants, Palpation: soft, in all quadrants, moderate abdominal tenderness, in the epigastric area, rebound tenderness, is not appreciated, involuntary guarding, is not appreciated. 17:30 Back: CVA tenderness, is absent. 17:30 Neuro: Orientation: to person, place \T\ time. Mentation: is normal. 20:03 ECG was reviewed by the Attending Physician. cp Vital Signs: 17:08 BP 142 / 73; Pulse 58; Resp 18; Temp 97.9; Pulse Ox 98% on R/A; Weight 127.01 kg; ph Height 5 ft. 4 in. ; Pain 7/10; 18:31 BP 143 / 72; Pulse 59; Pulse Ox 99% ; ll1 19:30 BP 138 / 72; Pulse 64; Resp 18 S; Pulse Ox 98% on R/A; jw7 20:49 BP 134 / 71; Pulse 64; Resp 16 S; Pulse Ox 97% on R/A; jw7 21:37 BP 139 / 72; Pulse 62; Resp 16 S; Pulse Ox 96% on R/A; jw7 22:14 BP 126 / 70; Pulse 64; Resp 16 S; Pulse Ox 95% on R/A; jw7 17:08 Body Mass Index 48.06 (127.01 kg, 162.56 cm) ph 17:08 Pain Scale: Adult ph MDM: 16:55 Patient medically screened. [facility] 19:33 Data reviewed: vital signs, nurses notes, lab test result(s), EKG, radiologic studies, CT scan. 19:33 Differential diagnosis: gastritis, pancreatitis, viral gastroenteritis, cp gastroenteritis, GERD, acute CT, choledocholithiasis. I considered the following discharge prescriptions or medication management in the emergency department Medications were administered in the Emergency Department. See MAR. Independent interpretation of the following test(s) in the Emergency Department EKG: See my EKG interpretation above. Care significantly affected by the following chronic conditions: lymphedema. Counseling: I had a detailed discussion with the patient and/or guardian regarding the historical points, exam findings, and any diagnostic results supporting the discharge/admit diagnosis, lab results, radiology results, the need to transfer to another facility, [facility] does not immediately have the required specialist. 21:00 ED course: consult with DR Colbert, hospitalist, will accept patient as transfer to [facility]. 08/09 17:13 Order name: CBC with Diff; Complete Time: 18:10 08/09 19:10 Interpretation: Normal except: GOMEZ% 81.6; LYM% 11.2. 08/09 17:13 Order name: CMP; Complete Time: 18:10 08/09 19:09 Interpretation: Normal except: GLUC 129; GFR 89; AST 251; ALT 150; GLOB 4.0; A/G 0.9. 08/09 17:13 Order name: Lipase; Complete Time: 18:10 08/09 17:13 Order name: Urinalysis w/ reflexes; Complete Time: 18:10 08/09 18:10 Interpretation: Normal except: [facility] Extremely Turbid; UPH 8.0; UPROT 1+; UUROB 1+; cp UESTR 75; UWBC 20-50; URBC 11-20. 08/09 17:40 Order name: Urine Culture EDTN 08/09 19:32 Order name: Lactate w/ 2H reflex if indic.; Complete Time: 20:33 08/09 19:32 Order name: Troponin High Sensitivity; Complete Time: 20:51 08/09 19:32 Order name: PT-INR; Complete Time: 20:33 cp 08/09 17:13 Order name: CT Abd/Pelvis - IV Contrast Only; Complete Time: 19:05 cp 08/09 19:24 Order name: XRAY Chest (1 view); Complete Time: 20:33 cp 08/09 19:32 Order name: EKG; Complete Time: 19:32 cp 08/09 17:13 Order name: IV Saline Lock; Complete Time: 17:14 cp 08/09 17:13 Order name: Labs collected and sent; Complete Time: 17:14 cp 08/09 19:32 Order name: EKG - Nurse/Tech; Complete Time: 19:57 cp EC:03 Rate is 67 beats/min. Rhythm is regular. OR interval is normal. QRS interval is normal. cp QT interval is normal. T waves are Inverted in leads III, aVR. Interpreted by me. Reviewed by me. Administered Medications: 17:31 Drug: Famotidine IVP 20 mg Route: IVP; Site: right antecubital; ph 18:32 Follow up: Response: No adverse reaction ll1 17:31 Drug: Ondansetron IVP 4 mg Route: IVP; Site: right antecubital; ph 18:32 Follow up: Response: No adverse reaction ll1 19:30 Drug: morphine IVP or IV 4 mg Route: IVP; Infused Over: 4 mins; Site: right antecubital;jw7 21:10 Follow up: Response: No adverse reaction; Marked relief of symptoms jw7 21:09 Drug: NS 0.9% IV 1000 ml Route: IV; Rate: 1000 ml/hr; Site: right antecubital; jw7 22:15 Follow up: Response: No adverse reaction; IV Status: Infusion continued upon transfer; jw7 IV Intake: 200ml 21:09 Drug: NS 0.9% IV 1000 ml Route: IV; Rate: 75 ml/hr; Site: right antecubital; jw7 22:15 Follow up: Response: No adverse reaction; IV Status: Infusion continued upon transfer; jw7 IV Intake: 150ml Disposition Summary: 08/09/23 19:32 Transfer Ordered Transfer Location: [facility] cp Reason: Higher level of care cp Condition: Stable cp Problem: new cp Symptoms: have improved cp Accepting Physician: DR Colbert(08/09/23 22:16) jw7 Diagnosis - Epigastric pain cp - Abnormal results of liver function studies cp Forms: - Medication Reconciliation Form cp - SBAR form cp Addendum: 08/12/2023 08:12 Co-signature as Attending Physician, Alistair NEWMAN was immediately available on-site m s3 in the Emergency Department for consultation in the care of the patient. Signatures: Dispatcher [employer] EDMS Dre Loza MD MD cha Hall, Patricia RN RN ph Dre Siegel PA PA Alistair Coats DO DO ms3 Domi Wilhelm RN RN jw7 Alka Davidson RN ll1 Corrections: (The following items were deleted from the chart) 08/09 17:12 17:11 Allergies: No Known Allergies; ph 22:12 19:32 Doctor cp cp 22:16 22:12 DR Sayra arrieta jw7 08/10 21:56 08/09 22:05 ED course: consult with DR Colbert, hospitalist, will accept patient as cp transfer to [facility]. cp
--- NOTE | 2023-08-09 19:32 | ER ---
Nurse's Notes [facility] Name: Karni Marinelli Age: 62 yrs Sex: Female : 1960 Arrival Date: 08/09/2023 Time: 16:40 Bed 4 Private MD: Diagnosis: Epigastric pain;Abnormal results of liver function studies Presentation: 08/09 17:08 Chief complaint: Patient states: Epigastric pain that started at approx 1100 today, ph denies N/V/D, states, " It feels like my gallbladder but I had that removed years ago.". Coronavirus screen: Vaccine status: Patient reports receiving the 2nd dose of the covid vaccine. Ebola Screen: No symptoms or risks identified at this time. Initial Sepsis Screen: Does the patient meet any 2 criteria? No. Patient's initial sepsis screen is negative. Does the patient have a suspected source of infection? No. Patient's initial sepsis screen is negative. Risk Assessment: Do you want to hurt yourself or someone else? Patient reports no desire to harm self or others. Onset of symptoms was August 09, 2023. 17:08 Method Of Arrival: Ambulatory ph 17:08 Acuity: MEGAN 3 ph Triage Assessment: 17:12 General: Appears in no apparent distress. uncomfortable, Behavior is calm, cooperative, ph appropriate for age, Denies fever, chills. Pain: Complains of pain in epigastric area. Neuro: Level of Consciousness is awake, alert, obeys commands, Oriented to person, place, time, situation. Cardiovascular: Capillary refill < 3 seconds in bilateral fingers Patient's skin is warm and dry. Respiratory: Airway is patent Respiratory effort is even, unlabored. GI: Reports upper abdominal pain, epigastric pain, Patient currently denies nausea, vomiting. Derm: Skin is pink, warm \\T\\ dry. Musculoskeletal: Circulation, motion, and sensation intact. Range of motion: intact in all extremities. Historical: - Allergies: 17:11 Percodan; ph - Home Meds: 17:11 Contrave oral [Active]; ph - PMHx: 17:11 None; ph - PSHx: 17:11 Cholecystectomy; ph - Immunization history:: Adult Immunizations unknown. - Social history:: Smoking status: Patient denies any tobacco usage or history of. Screenin:10 [facility] ED Fall Risk Assessment (Adult) History of falling in the last 3 months, ph including since admission No falls in past 3 months (0 pts) Confusion or Disorientation No (0 pts) Intoxicated or Sedated No (0 pts) Impaired Gait No (0 pts) Mobility Assist Device Used No (0 pt) Altered Elimination No (0 pt) Score/Fall Risk Level 0 - 2 = Low Risk Oriented to surroundings, Maintained a safe environment, Hourly rounding (assess needs \\T\\ fall precautionary measures) done, Used ambulatory aids as needed (educated on \\T\\ assisted with). Abuse screen: Denies threats or abuse. Denies injuries from another. Nutritional screening: No deficits noted. Tuberculosis screening: No symptoms or risk factors identified. Assessment: 17:20 Reassessment: No changes from previously documented assessment. Patient and/or family ll1 updated on plan of care and expected duration. Pain level reassessed. 18:33 Reassessment: No changes from previously documented assessment. Patient and/or family ll1 updated on plan of care and expected duration. Pain level reassessed. Patient is alert, oriented x 3, equal unlabored respirations, skin warm/dry/pink. 19:20 Reassessment: Patient appears in no apparent distress at this time. Patient and/or jw7 family updated on plan of care and expected duration. Pain level reassessed. Patient is alert, oriented x 3, equal unlabored respirations, skin warm/dry/pink. c/o pain 7/10 to epigastric area, Provider notified. . 20:30 Reassessment: Patient appears in no apparent distress at this time. Patient and/or jw7 family updated on plan of care and expected duration. Pain level reassessed. Patient is alert, oriented x 3, equal unlabored respirations, skin warm/dry/pink. Patient states symptoms have improved. 21:37 Reassessment: Patient appears in no apparent distress at this time. No changes from jw7 previously documented assessment. Patient and/or family updated on plan of care and expected duration. Pain level reassessed. Patient is alert, oriented x 3, equal unlabored respirations, skin warm/dry/pink. 22:14 Reassessment: Patient appears in no apparent distress at this time. No changes from jw7 previously documented assessment. Patient and/or family updated on plan of care and expected duration. Pain level reassessed. Patient is alert, oriented x 3, equal unlabored respirations, skin warm/dry/pink. Vital Signs: 17:08 BP 142 / 73; Pulse 58; Resp 18; Temp 97.9; Pulse Ox 98% on R/A; Weight 127.01 kg; ph Height 5 ft. 4 in. ; Pain 7/10; 18:31 BP 143 / 72; Pulse 59; Pulse Ox 99% ; ll1 19:30 BP 138 / 72; Pulse 64; Resp 18 S; Pulse Ox 98% on R/A; jw7 20:49 BP 134 / 71; Pulse 64; Resp 16 S; Pulse Ox 97% on R/A; jw7 21:37 BP 139 / 72; Pulse 62; Resp 16 S; Pulse Ox 96% on R/A; jw7 22:14 BP 126 / 70; Pulse 64; Resp 16 S; Pulse Ox 95% on R/A; jw7 17:08 Body Mass Index 48.06 (127.01 kg, 162.56 cm) ph 17:08 Pain Scale: Adult ph ED Course: 16:44 Patient arrived in ED. mg5 16:49 Dre Siegel PA is PHCP. cp 16:49 Alistair Jay DO is Attending Physician. cp 16:55 Arm band placed on Patient placed in an exam room, on a stretcher. ll1 17:08 Guillermina Arana, RN is Primary Nurse. ph 17:10 Triage completed. ph 17:11 Patient has correct armband on for positive identification. Placed in gown. Bed in low ph position. Call light in reach. Side rails up X2. Pulse ox on. NIBP on. Door closed. Noise minimized. Warm blanket given. 17:24 CBC with Diff Sent. ph 17:24 CMP Sent. ph 17:24 Lipase Sent. ph 17:24 Urinalysis w/ reflexes Sent. ph 18:30 CT Abd/Pelvis - IV Contrast Only In Process Unspecified. EDMS 19:39 Initiated transfer to [facility], spoke with no one. phone disconnected after 32 mins on hold. wm 20:12 Initiated transfer to [facility], spoke with no one, phone disconnected after 7 mins. wm 20:12 Initiated transfer to [facility], disconnected after 3 mins. wm 20:15 XRAY Chest (1 view) In Process Unspecified. EDMS 20:23 Initiated transfer to [facility], spoke with Yoly. wm 21:06 Pt accepted for transfer to [facility] Rm: [address] Casanova \\T\\ 2056 per Yoly Abrams. wm 21:37 EMS accepted Pt for transport, ETA \\T\\ 2149. wm 21:49 No provider procedures requiring assistance completed. Patient transferred, IV remains jw7 in place. 21:50 Provided Education on: need for transfer. jw7 Administered Medications: 17:31 Drug: Famotidine IVP 20 mg Route: IVP; Site: right antecubital; ph 18:32 Follow up: Response: No adverse reaction ll1 17:31 Drug: Ondansetron IVP 4 mg Route: IVP; Site: right antecubital; ph 18:32 Follow up: Response: No adverse reaction ll1 19:30 Drug: morphine IVP or IV 4 mg Route: IVP; Infused Over: 4 mins; Site: right antecubital;jw7 21:10 Follow up: Response: No adverse reaction; Marked relief of symptoms jw7 21:09 Drug: NS 0.9% IV 1000 ml Route: IV; Rate: 1000 ml/hr; Site: right antecubital; jw7 22:15 Follow up: Response: No adverse reaction; IV Status: Infusion continued upon transfer; jw7 IV Intake: 200ml 21:09 Drug: NS 0.9% IV 1000 ml Route: IV; Rate: 75 ml/hr; Site: right antecubital; jw7 22:15 Follow up: Response: No adverse reaction; IV Status: Infusion continued upon transfer; jw7 IV Intake: 150ml Medication: 17:11 VIS not applicable for this client. ph Intake: 22:15 IV: 200ml; Total: 200ml. jw7 22:15 IV: 150ml; Total: 350ml. jw7 Outcome: 19:32 ER care complete, transfer ordered by . cp 21:49 Transferred by [facility] to [facility]. jw7 21:49 Condition: stable 21:49 Instructed on the need for transfer. 22:16 Patient left the ED. jw7 Signatures: Dispatcher [employer] EDGuillermina Capellan RN RN ph Dre Siegel PA PA cp Lewis, Lynsay, RN RN 1 Chelsie Uriarte Domi Wilhelm RN RN jw7 Ana Lujan mg5 Corrections: (The following items were deleted from the chart) 17:12 17:11 Allergies: No Known Allergies; ph ph 20:20 19:39 Initiated transfer to [facility], spoke with wm wm 20:21 19:39 Initiated transfer to [facility], spoke with no one. phone disconnected after 42 mins on wm hold wm 20:24 20:12 Initiated transfer to [facility], disconnected after 3 mins wm wm 20:28 20:23 Initiated transfer to [facility], wm wm 20:35 19:30 Reassessment: Patient appears in no apparent distress at this time. Patient dusty and/or family updated on plan of care and expected duration. Pain level reassessed. Patient is alert, oriented x 3, equal unlabored respirations, skin warm/dry/pink. c/o pain 7/10 to epigastric area, Provider notified. . dusty 20:57 20:55 No provider procedures requiring assistance completed. dusty Sally 20:57 20:55 Patient admitted, IV remains in place. dusty Sally 20:57 20:35 General: report given to receiving nurse on 2nd floor . dusty dusty 20:57 20:55 Admitted to Med/surg accompanied by tech, via stretcher, room 231, with chart, [id number] 20:57 20:55 Condition: stable rajeshSally [email or web address] 20:57 20:55 Instructed on the need for admit, dusty jw7 20:58 20:56 Provided Education on: need for admit. jwSally jw7
[2023-08-09 19:58] LABS: Protime INR 1.05
--- NOTE | 2023-08-09 20:31 | RAD REPORT ---
EXAM DESCRIPTION: Pradeep Single View08/09/2023 8:13 pm CLINICAL HISTORY: Abdominal pain COMPARISON: 2020 FINDINGS: The lungs appear clear of acute infiltrate. The heart is mildly enlarged IMPRESSION: No acute abnormalities displayed
[2023-08-09] MEDS ORDERED: NA CHLORIDE 0.9% 2,000 ML ONE (21:13)
[2023-08-09 22:22] VITALS: TEMP 97.9
[2023-08-09 22:30] VITALS: BP 126/70; O2SAT 95
--- NOTE | 2023-08-12 19:11 | EKG ---
Test Date: 2023-08-09 Test Time: 19:56:39 Paper Tube Grader: RV MEASUREMENT RESULTS: Intervals: Rate: 67 GA: 174 QRSD: 90 QT: 406 QTc: 429 Lorraine: P: 30 GA: 174 QRS: 9 T: 11 INTERPRETIVE STATEMENTS: Normal sinus rhythm Nonspecific T wave abnormality Abnormal ECG Compared to ECG 05/27/2017 17:16:47 T-wave abnormality now present Myocardial infarct finding no longer present Electronically Signed On 08-12-23 19:06:57 CDT by Michael Fajardo
== END 2023-08-09 22:16 | disposition short-term general hospital (02) ==
LOC: ER 16:40
DX: R10.13 Epigastric pain (principal); R94.5 Abnormal results of liver function studies; Z88.5 Allergy status to narcotic agent
CPT/HCPCS: 96361; 87088; 85025; 81001; 87086; 36415; 85610; 83605; 87077; 87186; 84484; 83690; 80053; 74177; 71045; 96375; 96374; 99285; Q9967; J2405; J7030; 93005